=== PATIENT | male | born 1945 | race Caucasian/White ===

== ENCOUNTER 2016-08-15 22:09 | Emergency (ER) | payer OTHER ==
[~2016-08-15] VITALS: Wt 101.5 kg
[~2016-08-15 22:09] MED LIST: ATEN-51; ATOR10TA23; BENA20TA48; CELE100C85; OMEP20CA16; ROSI4TAB; SITA100T8
[2016-08-15] MEDS ORDERED: KETOROLAC 30 MG INJ IM STA (22:39)
[2016-08-15] MEDS ORDERED: MELO-109 PO (22:40)
--- NOTE | 2016-08-15 22:43 | ERD ---
ER Documentation Chief Complaint Date/Time DATE: 08/15/16 TIME: 22:41 Chief Complaint RIGHT KNEE PAIN X1WEEK HPI 8-year-old man complains of 1 week of right knee pain and mild swelling. He had surgery to the right knee many years ago for ACL/PCL injury. He denies redness to the skin, no fevers or chills, no difficulty ambulating. Patient has not used medications for pain relief. Patient denies calf swelling or recent/new injury. Patient has had no falls. ROS All systems reviewed and are negative except as per history of present illness. Medications Home Meds Active Scripts Meloxicam* (Meloxicam*) 7.5 Mg Tablet, 7.5 MG PO DAILY for PAIN AND/OR INFLAMMATION, #30 TAB Prov:MANOLO KOHLI MD 08/15/16 Reported Medications Atenolol* (Atenolol*) 25 Mg Tablet 12/14/09 Benazepril Hcl* (Benazepril Hcl*) 20 Mg Tablet 12/14/09 Rosiglitazone Maleate* (Avandia*) 4 Mg Tablet 12/14/09 Atorvastatin (Lipitor) 10 Mg Tablet 12/14/09 Celecoxib* (Celebrex*) 100 Mg Capsule 12/14/09 Omeprazole* (Omeprazole*) 20 Mg Capsule. 12/14/09 Sitagliptin* (Januvia*) 100 Mg Tablet 12/14/09 Allergies Allergies: Coded Allergies: Povidone-Iodine (Verified Allergy, Mild, rash, 12/14/09) PMhx/Soc Hypertension, gastritis, arthritis, hypercholesterolemia, previous ACL/PCL surgery of the right knee History of Surgery: Yes (right knee, ventral hernia, cervical plating) Anesthesia Reaction: No Hx Respiratory Disorders: No Hx Cardiac Disorders: No Hx Psychiatric Problems: No Hx Miscellaneous Medical Probl: No Hx Alcohol Use: Yes (socially) Hx Substance Use: No Hx Tobacco Use: No FmHx Family History: No diabetes Physical Exam Vitals Vital Signs Date Time Temp Pulse Resp B/P Pulse Ox O2 Delivery O2 Flow Rate FiO2 08/15/16 22:14 98.6 64 12 186/86 97 Physical Exam GENERAL: Well-developed, well-nourished, well-hydrated, in no apparent distress , looks nontoxic in appearance HEENT: Moist mucous membranes, pink conjunctiva, no cervical spine tenderness or step-off deformities, no goiter, no jaundice or icterus, extraocular movements intact without pain. No submandibular induration, and no pharyngeal erythema NEURO: Alert and oriented 3, cranial nerves II through XII intact bilaterally, pupils equal round reactive to light, no focal deficits or facial asymmetry, sensation intact distally Strength 5/5 in upper and lower extremities bilaterally CARDIAC: Regular rate and rhythm, no murmurs rubs or gallops LUNGS: Clear bilaterally no wheezing crackles or stridor ABDOMEN: Soft nontender, no guarding, no rigidity, no rebound, no psoas sign no obturator sign. Normoactive bowel sounds SKIN: Warm and dry to touch, no abrasions, contusions, or hematomas, no lacerations, no ecchymosis, no target lesions, and without ulcers EXTREMITIES: No clubbing cyanosis or edema, mild soft tissue swelling to the right lateral knee consistent with intra-articular effusion without surrounding skin erythema or induration. Calves are bilaterally symmetrical, no Homans sign , no popliteal cord sign. Distal pulses equal and bilateral PSYCH: Normal affect without agitation or irritability Results 24 hrs Current Medications Medications (Trade) Dose Ordered Sig/Pedro Route PRN Reason Start Time Stop Time Status Last Admin Dose Admin Ketorolac Tromethamine (Toradol) 30 mg ONCE STAT IM 08/15/16 22:39 08/15/16 22:40 DC 08/15/16 22:54 Procedures/MDM I administered Toradol 30 mg intramuscular injection and Bryan wrap to the right knee for comfort and supportive measures. Differential diagnoses considered, included but not limited to septic arthritis , ligamentous injury, knee effusion, DVT, sepsis, stroke, meningitis, encephalitis, pneumonia, appendicitis, cholecystitis, bowel obstruction, pyelonephritis, nephrolithiasis, cystitis, as well as metabolic, hematologic, and electrolyte abnormalities. As well as abscess, cellulitis, fractures, and dislocations. Patient feels much better at this time, and vital signs are normal, symptoms have improved. I did give strict instructions to return to the ED if symptoms continue or worsen, patient will otherwise follow-up with primary care physician. Patient understood instructions and agreed to plan. Disclaimer: Inadvertent spelling or grammatical errors are likely due to EHR/ dictation software use and do not reflect on the overall quality of patient care. Departure Diagnosis: Primary Impression: Arthritis Additional Impression: Knee sprain Encounter type: initial encounter Involved ligament of knee: unspecified ligament Laterality: right Qualified Code: S83.91XA - Sprain of right knee, unspecified ligament, initial encounter Condition: Good Patient Instructions: What Is Arthritis?, Knee Sprain, Knee Sprain: Collateral Ligaments MANOLO KOHLI MD August 15, 2016 22:43
== END 2016-08-15 23:20 | disposition home or self-care (01) ==
LOC: E/R 22:09
DX: M17.9 Osteoarthritis of knee, unspecified (principal); S83.91XA Sprain of unspecified site of right knee, initial encounter; I10 Essential (primary) hypertension; X58.XXXA Exposure to other specified factors, initial encounter; Y92.9 Unspecified place or not applicable
CPT/HCPCS: 96372; 99284; J1885

== ENCOUNTER 2017-09-16 06:44 | Day surgery (SDC) | END 2017-09-16 15:25 | disposition home or self-care (01) ==

== ENCOUNTER 2018-03-31 06:16 | Day surgery (SDC) | payer OTHER ==
--- NOTE | 2018-03-30 12:39 | PREOPHP ---
DATE OF ADMISSION: 03/31/2018 HISTORY OF PRESENT ILLNESS: This 73-year-old patient is admitted for elective cataract surgery of th e left eye. The patient has previously undergone cataract surgery of the right eye approximately 6 m onths ago with excellent visual recovery. The patient denies any prior history of eye disease or inj ury. PAST MEDICAL HISTORY: The patient's systemic history is positive for hypertension, hyperlipidemia an d diabetes mellitus type 2. CURRENT MEDICATIONS: Include: 1. Glipizide. 2. Januvia. 3. Aspirin (discontinued 3 days prior to surgery). 4. Atorvastatin. 5. Benazepril. 6. Hydrochlorothiazide. 7. Metformin. ALLERGIES: THERE ARE NO KNOWN ALLERGIES. PHYSICAL EXAMINATION: The visual acuity with best correction is 20/20 in the right eye and 20/80 in the left eye. Slit lamp examination reveals a posterior chamber intraocular lens in the right eye an d a nuclear sclerotic and posterior subcapsular cataract in the left eye. Applanation tonometry is 1 6 mmHg. Examination of the retina is within normal limits. DIAGNOSIS: Posterior subcapsular cataract, left eye. PLAN: Cataract extraction with lens implant, left eye. The risks and alternatives to the surgery godinez ve been discussed with the patient. The patient understands this and agrees to proceed with surgery in hopes of improving visual acuity leading to greater ability to perform activities of daily living. Dictated By: IRASEMA MANUEL/NIKKI Conf#: [id number] DID#: [id number]
[2018-03-31] VITALS (16 sets, daily range): BP systolic 115–159; BP diastolic 55–82; PULSE 53–76; RESP 14–18; Ht 162.6 cm; Wt 94.9 kg
[~2018-03-31] VITALS: Ht 162.6 cm; Wt 94.9 kg
[~2018-03-31 06:16] MED LIST changes: -ATEN-51; -ATOR10TA23; +ATOR20TA38 PO; +BENA20TA4 PO; -BENA20TA48; +CALC500T91 PO; -CELE100C85; +CYCLOPENTOLATE/PHENYLEPH 2 ML OPH OPER SCH; +DICLOFENAC 0.1% 2.5 ML OPH OPER SCH; +GLIP10TA14 PO; +HYDR12.58 PO; +MOXIFLOXACIN 0.5% 3 ML OPH OPER SCH; +MTF1000T PO; +NAPR-688 PO; -OMEP20CA16; -ROSI4TAB; -SITA100T8; +SITA50TA2 PO; +SOD CHLORIDE 0.9% 1,000 ML IV SCH; +TROPICAMIDE 1% 15 ML OPH OPER SCH
[2018-03-31] MEDS ORDERED: ASPI81TA52 PO (07:35)
[2018-03-31] MEDS ORDERED: CARBACHOL 0.01% 1.5 ML OPH INJ ONE (08:21)
[2018-03-31] MEDS ORDERED: DEXAMETHASONE 4 MG/ML 1 ML INJ ONE (08:21)
[2018-03-31] MEDS ORDERED: CEFAZOLIN 1 GM INJ ONE (08:21)
[2018-03-31] MEDS ORDERED: LIDOCAINE 4% (MPF) 5 ML INJ ONE (08:21)
[2018-03-31] MEDS ORDERED: TETRACAINE 0.5% 4 ML OPH ONE (08:21)
--- NOTE | 2018-03-31 08:23 | PREAC ---
Date/Time of Note Date/Time of Note DATE: 03/31/18 TIME: 08:21 Anesthesia Eval and Record Evaluation Time Pre-Procedure Interview DATE: 03/31/18 TIME: 08:21 Age 73 Sex male NPO: 8 hrs Preoperative diagnosis Left Eye Cataract Planned procedure Left Eye Cataract Extraction and IOL implant Past Medical History Past Medical History: Includes Cardio: HTN, Dyslipidemia Endo: Diabetes Surgery & Anesthesia Issues No known issue Meds Anticoagulation: No Beta Milena within 24 hr: No Reason Beta Milena not given: Pt. not on B-Milena Reported Medications Aspirin (Low Dose Aspirin) 81 Mg Tablet.dr, 81 MG PO DAILY, #30 TAB 03/31/18 Naproxen* (Naproxen*) 500 Mg Tablet, 500 MG PO BID PRN for PAIN AND/OR INFLAMMATION, TAB 09/16/17 Calcium Carbonate ([id number]) 500 Mg Tablet, 500 MG PO DAILY, TAB 09/16/17 Hydrochlorothiazide* (Hydrochlorothiazide*) 12.5 Mg Tablet, 12.5 MG PO DAILY, #30 TAB 09/16/17 Atorvastatin Calcium* (Atorvastatin Calcium*) 20 Mg Tablet, 20 MG PO QHS, #30 TAB 09/16/17 Glipizide* (Glipizide*) 10 Mg Tablet, 10 MG PO TID, TAB 09/16/17 Metformin* (Glucophage*) 1,000 Mg Tablet, 1000 MG PO BID, #60 TAB 09/16/17 Benazepril Hcl* (Benazepril Hcl*) 20 Mg Tablet, 20 MG PO DAILY, #30 TAB 09/16/17 Sitagliptin* (Januvia*) 50 Mg Tablet, 50 MG PO BID, #30 TAB 09/16/17 Current Medications Diclofenac Sodium (Voltaren 0.1%) 1 drop Q5 MIN X 3 OPER Last administered on 03/31/18at 07:34; Admin Dose 1 DROP; Start 03/31/18 at 06:00 Tropicamide (Mydriacyl 1%) 1 drop Q5 MIN X3 OPER Last administered on 03/31/18at 07:42; Admin Dose 1 DROP; Start 03/31/18 at 06:00 Moxifloxacin HCl (Vigamox) 1 drop Q5 MIN X 3 OPER Last administered on 03/31/18at 07:34; Admin Dose 1 DROP; Start 03/31/18 at 06:00 Cyclopentolate/ Phenylephrine (Cyclomydril Oph 2 ml) 1 drop Q5 MIN X 3 OPER Last administered on 03/31/18at 07:34; Admin Dose 1 DROP; Start 03/31/18 at 06:00 Sodium Chloride 1,000 ml @ 25 mls/hr Q24H IV Last administered on 03/31/18at 07:35; Admin Dose 25 MLS/HR; Start 03/31/18 at 06:00 Meds reviewed: Yes Allergies Coded Allergies: No Known Allergies (Verified Allergy, Unknown, 03/31/18) povidone-iodine (Verified Adverse Reaction, Mild, rash, 03/31/18) Allergies Reviewed: Yes Labs/Studies Labs Reviewed: Reviewed by anesthesiologist test: N/A Studies: ECG (n/a), CXR (n/a) Pre-procedure Exam Last vitals Vital Signs Date Temp Pulse Resp B/P (MAP) Pulse Ox O2 O2 Flow FiO2 Time Delivery Rate 03/31/18 97.3 53 18 159/74 97 Room Air 07:51 (102) Airway: Adequate mouth opening, Adequate thyromental dist Mallampati: Mallampati II Teeth: Normal Lung: Normal Heart: Normal ASA Physical Status ASA physical status: 3 Emergency: None Planned Anesthetic General/MAC: MAC Planned Pain Management Parenteral pain med Pre-operative Attestations Prior to commencing anesthesia and surgery, the patient was re-evaluated, there was verification of: *The patient's identity *The results of appropriate recent lab work and preoperative vital signs *The above evaluation not changing prior to induction *Anesthetic plan, risk benefits, alternative and complications discussed with patient/family; questions answered; patient/family understands, accepts and wishes to proceed. GEE LUZ MD Mar 31, 2018 08:23
[2018-03-31] MEDS ORDERED: LABETALOL HCL 20MG INJ IV PRN (08:30)
[2018-03-31] MEDS ORDERED: OXYCODONE/ACETAMINOPHEN (5/325) TAB PO PRN (08:30)
[2018-03-31] MEDS ORDERED: EPHEDrine SULFATE 50 MG/5 ML SYG IV PRN (08:30)
[2018-03-31] MEDS ORDERED: METOCLOPRAMIDE 10 MG INJ IV PRN (08:30)
[2018-03-31] MEDS ORDERED: hydrALAzine 20 MG INJ IV PRN (08:30)
[2018-03-31] MEDS ORDERED: ONDANSETRON 4 MG INJ IV PRN (08:30)
[2018-03-31] MEDS ORDERED: HYDROmorphONE 1 MG/5 ML IV SYRINGE IV PRN ×2 (08:30)
[2018-03-31] MEDS ORDERED: FENTAnyl 50 MCG/ML VIAL IV PRN ×2 (08:30)
[2018-03-31] MEDS ORDERED: MIDAZOLAM 1 MG/ML 2 ML INJ ONE (08:35)
[2018-03-31] MEDS ORDERED: ONDANSETRON 4 MG INJ ONE (08:39)
[2018-03-31] MEDS ORDERED: PROPOFOL 20 ML ONE (08:39)
[2018-03-31] MEDS ORDERED: METOCLOPRAMIDE 10 MG INJ ONE (08:39)
[2018-03-31] MEDS ORDERED: FENTAnyl 50 MCG/ML VIAL ONE (08:55)
--- NOTE | 2018-03-31 09:14 | PAC ---
Date/Time of Note Date/Time of Note DATE: 03/31/18 TIME: 09:13 Post-Anesthesia Notes Post-Anesthesia Note Last documented vital signs Vital Signs Date Temp Pulse Resp B/P (MAP) Pulse Ox O2 O2 Flow FiO2 Time Delivery Rate 03/31/18 97.3 53 18 159/74 97 Room Air 09:11 (102) Activity: WNL Respiratory function: WNL Cardiovascular function: WNL Mental status: Baseline Pain reasonably controlled: Yes Hydration appropriate: Yes Nausea/Vomiting absent: Yes GEE LUZ MD Mar 31, 2018 09:14
--- NOTE | 2018-03-31 09:15 | SIPON ---
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
--- NOTE | 2018-03-31 10:37 | OPR ---
DATE OF OPERATION: 03/31/2018 PREOPERATIVE DIAGNOSIS: Posterior subcapsular cataract, left eye. POSTOPERATIVE DIAGNOSIS: Posterior subcapsular cataract, left eye. OPERATION PERFORMED: Cataract extraction with lens implant, left eye. SURGEON: Irasema Chavez MD ANESTHESIA: MAC. TRAINING TECHNICIAN: Harley Olmstead MD OPERATION: Phacoemulsification with posterior chamber intraocular lens implant, left eye. PROCEDURE: The patient was brought to the operating room and placed on the table with an IV in place and the patient attached to an electronic device monitor. Oxygen was given via face mask. After some intravenous sedation was administered, local anesthesia was given using Xylocaine 2% with epinephrine, mixed with Marcaine 0.5%. This was given in a lid block and retrobulbar injection. The p atient was then prepped and draped in the usual sterile manner. A wire lid speculum was inserted between the lids of the left eye. A Superblade was used to enter the anterior chamber at the corneoscleral limbus at the 10:30 o'clock position. A separate incision was made using a 3.0-mm keratome which entered the corneoscleral junction at the 12 o'clock position. Thr ough this 3-mm opening, an irrigating cystotome was introduced into the anterior chamber. The chamber was filled with Viscoat and an anterior capsulotomy was performed. Balanced salt solution was then u sed for hydrodissection of the lens. A phacoemulsification handpiece was then brought into the field and introduced into the anterior chamber. The lens nucleus was emulsified using a deep groove and cr acking the nucleus into quadrants. Following this, each quadrant was aspirated and emulsified at the pupillary margin. After this was completed, the irrigation/aspiration handpiece was brought to the field, introduced in to the posterior chamber, and the lens cortical material was removed. When this was completed, additi onal Viscoat was injected into the anterior and posterior chambers. The 3-mm opening had its internal lips enlarged, and then the posterior chamber intraocular lens afia uring 21.0 diopters ([employer] Model LI61AO) was then injected into the posterior c hamber using the lens injector system. After the leading haptic was introduced into the capsular bag and the lens optic was present in the center of the eye, the injector was removed and the trailing godinez ptic was grasped with non-toothed forceps and introduced into the capsular fold superiorly. A Sinskey hook was then used to rotate the intraocular lens so that the lips were oriented in the horizontal m eridian. One 10-0 nylon suture was placed across the wound. Prior to tying, the irrigation/aspiration handpiece was reintroduced into the anterior chamber to rem ove the Viscoat. Miochol was instilled to constrict the pupil, and then the 10-0 nylon suture was tie d. The ends were cut short and then the knot was buried. Then, 0.5 mL of dexamethasone and 0.5 mL of Ancef were injected into the sub-Tenon space in the infer ior fornix. Ciloxan drops were then placed on the surface of the eye. The speculum was removed and a patch was applied. The patient then left the operating room in satisfactory condition. Dictated By: IRASEMA MANUEL/NIKKI Conf#: [id number] DID#: [id number]
== END 2018-03-31 11:17 | disposition home or self-care (01) ==
LOC: SDS 06:16
PROVIDERS: ATTEND Ophthalmology
DX: H25.042 Posterior subcapsular polar age-related cataract, left eye (principal); I10 Essential (primary) hypertension; E78.5 Hyperlipidemia, unspecified
CPT/HCPCS: 66984; 82962; J0690; J1100; J2250; J2405; J2765; J3010; V2632